=== PATIENT | female | born 1985 | race Two or more races ===

== ENCOUNTER 2021-04-22 14:00 | Inpatient (IN) | payer OTHER ==
[~2021-04-22] VITALS: Ht 165.1 cm; Wt 79.8 kg
[~2021-04-22 14:00] MED LIST: ACETAMINOOPHEN-1 TAB PO; ULTRACET PO
[2021-05-04] MEDS ORDERED: PRENATAL TABLE1 EAC1 PO (20:13)
== END 2021-05-09 16:38 | disposition home or self-care (01) | DRG 807 ==
LOC: OB/GYN 05-06 14:00 → LDR 05-07 07:25 → OB/GYN 05-07 12:31
PROVIDERS: ADMIT Obstetrics & Gynecology; ATTEND Obstetrics & Gynecology
PROC: 10E0XZZ Delivery of Products of Conception, External Approach (ICD-10-PCS; principal; 2021-05-07)
PROC: 10907ZC Drainage of Amniotic Fluid, Therapeutic from Products of Conception, Via Natural or Artificial Opening (ICD-10-PCS; 2021-05-07)
PROC: 4A1HXFZ Monitoring of Products of Conception, Cardiac Rhythm, External Approach (ICD-10-PCS; 2021-05-07)
DX: O48.0 Post-term pregnancy (principal); O99.824 Streptococcus B carrier state complicating childbirth; Z37.0 Single live birth; Z3A.40 40 weeks gestation of pregnancy; Z20.822 Contact with and (suspected) exposure to COVID-19

== ENCOUNTER 2021-05-04 18:53 | Outpatient (CLI) | payer OTHER ==
[2021-05-04] MEDS ORDERED: PRENATAL TABLE1 EAC1 PO (20:13)
== END 2021-05-05 09:45 | disposition home or self-care (01) ==
LOC: OBS/DEL 18:53
PROVIDERS: ATTEND Obstetrics & Gynecology
DX: O36.8130 Decreased fetal movements, third trimester, not applicable or unspecified (principal); Z3A.39 39 weeks gestation of pregnancy